=== PATIENT | female | born 1995 | race Two or more races ===

== ENCOUNTER 2020-12-07 14:36 | Emergency (ER) | payer OTHER ==
[~2020-12-07] VITALS: Ht 165.1 cm; Wt 54.4 kg
[2020-12-07] MEDS ORDERED: EMERGEN-C 500500 MG (15:20)
[2020-12-07] MEDS ORDERED: PRENATAL + DHA1 EAC1 (15:20)
== END 2020-12-07 18:14 | disposition home or self-care (01) ==
LOC: ER 14:36
DX: O98.511 Other viral diseases complicating pregnancy, first trimester (principal); B34.9 Viral infection, unspecified; Z3A.08 8 weeks gestation of pregnancy; Z20.822 Contact with and (suspected) exposure to COVID-19

== ENCOUNTER 2021-05-30 18:44 | Emergency (ER) | payer OTHER ==
[~2021-05-30] VITALS: Ht 154.9 cm; Wt 59.9 kg
[~2021-05-30 18:44] MED LIST: EMERGEN-C 500500 MG; PRENATAL + DHA1 EAC1
[2021-05-30] MEDS ORDERED: ZITHROMAX500 MG PO (21:27)
== END 2021-05-30 21:41 | disposition home or self-care (01) ==
LOC: ER 18:44
DX: J35.01 Chronic tonsillitis (principal)

== ENCOUNTER 2021-07-06 19:54 | Outpatient (CLI) | payer OTHER ==
[~2021-07-06 19:54] MED LIST changes: +ZITHROMAX500 MG PO
== END 2021-07-07 23:50 | disposition home or self-care (01) ==
LOC: OBS/DEL 19:54
PROVIDERS: ATTEND Obstetrics & Gynecology
DX: O26.893 Other specified pregnancy related conditions, third trimester (principal); R10.2 Pelvic and perineal pain; Z04.3 Encounter for examination and observation following other accident; Z3A.38 38 weeks gestation of pregnancy; W18.39XA Other fall on same level, initial encounter; Y93.89 Activity, other specified; Y92.89 Other specified places as the place of occurrence of the external cause; Y99.8 Other external cause status

== ENCOUNTER 2021-07-14 14:30 | Inpatient (IN) | payer OTHER ==
[~2021-07-14] VITALS: Ht 154.9 cm; Wt 62.6 kg
[2021-07-19] MEDS ORDERED: PRENATAL TABLE1 EAC1 PO (02:39)
== END 2021-07-21 14:31 | disposition home or self-care (01) | DRG 807 ==
LOC: OB/GYN 07-19 02:36 → LDR 07-19 02:36 → OB/GYN 07-19 09:00
PROVIDERS: ADMIT Obstetrics & Gynecology; ATTEND Obstetrics & Gynecology
PROC: 10E0XZZ Delivery of Products of Conception, External Approach (ICD-10-PCS; principal; 2021-07-19)
PROC: 4A1HXFZ Monitoring of Products of Conception, Cardiac Rhythm, External Approach (ICD-10-PCS; 2021-07-19)
DX: O80 Encounter for full-term uncomplicated delivery (principal); Z37.0 Single live birth; Z3A.39 39 weeks gestation of pregnancy; Z20.822 Contact with and (suspected) exposure to COVID-19

== ENCOUNTER 2021-07-19 00:56 | Outpatient (CLI) | payer OTHER ==
[2021-07-19] MEDS ORDERED: PRENATAL TABLE1 EAC1 PO (02:39)
== END 2021-07-19 07:00 | disposition still patient (30) ==
LOC: OBS/DEL 00:56 → LDR 01:18 → OBS/DEL 01:22
PROVIDERS: ATTEND Obstetrics & Gynecology
DX: O47.1 False labor at or after 37 completed weeks of gestation (principal); Z3A.39 39 weeks gestation of pregnancy; Z20.822 Contact with and (suspected) exposure to COVID-19

== ENCOUNTER 2022-12-29 20:01 | Emergency (ER) | payer OTHER ==
[~2022-12-29] VITALS: Ht 154.9 cm; Wt 53.1 kg
[~2022-12-29 20:01] MED LIST changes: +PRENATAL TABLE1 EAC1 PO
[2022-12-30] MEDS ORDERED: ZOFRAN8 MG PO (00:03)
== END 2022-12-30 00:38 | disposition home or self-care (01) ==
LOC: ER 20:01
DX: O21.0 Mild hyperemesis gravidarum (principal); Z3A.12 12 weeks gestation of pregnancy

== ENCOUNTER 2023-01-10 14:59 | Outpatient (CLI) | payer OTHER ==
[~2023-01-10 14:59] MED LIST changes: +ZOFRAN8 MG PO
== END 2023-01-10 16:45 | disposition home or self-care (01) ==
LOC: PRENATAL 14:59
PROVIDERS: ATTEND Obstetrics & Gynecology Maternal & Fetal Medicine
DX: O36.80X0 Pregnancy with inconclusive fetal viability, not applicable or unspecified (principal); Z3A.13 13 weeks gestation of pregnancy

== ENCOUNTER 2023-02-20 08:41 | Outpatient (CLI) | payer OTHER | END 2023-02-20 10:23 | disposition home or self-care (01) | LOC: PRENATAL 08:41 | PROVIDERS: ATTEND Obstetrics & Gynecology Maternal & Fetal Medicine | DX: O35.9XX0 Maternal care for (suspected) fetal abnormality and damage, unspecified, not applicable or unspecified (principal); O35.3XX0 Maternal care for (suspected) damage to fetus from viral disease in mother, not applicable or unspecified; Z3A.19 19 weeks gestation of pregnancy ==

== ENCOUNTER 2023-05-22 09:11 | Outpatient (CLI) | payer OTHER | END 2023-05-22 10:04 | disposition home or self-care (01) | LOC: PRENATAL 09:11 | PROVIDERS: ATTEND Obstetrics & Gynecology Maternal & Fetal Medicine | DX: O26.849 Uterine size-date discrepancy, unspecified trimester (principal); O36.8199 Decreased fetal movements, unspecified trimester, other fetus; Z3A.32 32 weeks gestation of pregnancy ==

== ENCOUNTER 2023-05-28 22:05 | Outpatient (CLI) | payer OTHER ==
[2023-05-28] MEDS ORDERED: IRON18 MG (22:08)
== END 2023-05-29 14:53 | disposition home or self-care (01) ==
LOC: OBS/DEL 22:05
PROVIDERS: ATTEND Obstetrics & Gynecology
DX: O26.893 Other specified pregnancy related conditions, third trimester (principal); N89.8 Other specified noninflammatory disorders of vagina; Z3A.33 33 weeks gestation of pregnancy; Z20.822 Contact with and (suspected) exposure to COVID-19

== ENCOUNTER 2023-07-04 05:35 | Inpatient (IN) | payer OTHER ==
[~2023-07-04] VITALS: Ht 154.9 cm; Wt 3.2 kg
[~2023-07-04 05:35] MED LIST changes: +IRON18 MG
== END 2023-07-06 13:41 | disposition home or self-care (01) | DRG 807 ==
LOC: OB/GYN 05:35 → LDR 05:35 → OB/GYN 18:44
PROVIDERS: ADMIT Obstetrics & Gynecology; ATTEND Obstetrics & Gynecology
PROC: 10E0XZZ Delivery of Products of Conception, External Approach (ICD-10-PCS; principal; 2023-07-04)
PROC: 0KQM0ZZ Repair Perineum Muscle, Open Approach (ICD-10-PCS; 2023-07-04)
PROC: 4A1HXCZ Monitoring of Products of Conception, Cardiac Rate, External Approach (ICD-10-PCS; 2023-07-04)
DX: O70.1 Second degree perineal laceration during delivery (principal); Z37.0 Single live birth; O99.824 Streptococcus B carrier state complicating childbirth; Z3A.39 39 weeks gestation of pregnancy; Z20.822 Contact with and (suspected) exposure to COVID-19